=== PATIENT | female | born 1935 | race Caucasian/White ===

== ENCOUNTER 2018-06-07 11:39 | Observation (INO) | payer MEDICARE, OTHER ==
--- NOTE | 2018-06-07 12:30 | EDM.PDOC ---
ED HPI GENERAL MEDICAL PROBLEM - General Chief Complaint: Genitourinary Problem Stated Complaint: BLADDER INFECTION Time Seen by Provider: 06/07/18 12:30 Source of Information: Reports: Patient, RN History Limitations: Reports: No Limitations - History of Present Illness INITIAL COMMENTS - FREE TEXT/NARRATIVE: Very pleasant 82-year-old female presents to the emergency room today brought in by her with complaints of lower abdominal pain, dysuria, urgency, frequency with urination. She recently finished a three-day course of amoxicillin for UTI. She finished her amoxicillin on the . She denies any fever or chills, positive nausea, no vomiting or diarrhea. She denies any bloating. She does notice some flank pain. Her symptoms became increasingly worse yesterday. She reports that she still able to drink fluids adequately. She is a patient at the [facility]. Upon arrival her blood pressure was elevated 190/105. This was repeated and continued to be elevated. Patient denies any headaches, or chest pain. She denies any shortness of breath or difficulty breathing. Onset: Gradual Onset Date: 06/06/18 Duration: Day(s):, Getting Worse Location: Reports: Abdomen, Pelvis Quality: Reports: Burning Severity: Severe Improves with: Reports: None Worsens with: Reports: None Associated Symptoms: Reports: Loss of Appetite. Denies: Chest Pain, Fever/ Chills, Headaches, Nausea/Vomiting, Shortness of Breath - Related Data Allergies Allergy/AdvReac Type Severity Reaction Status Date / Time nitrofurantoin Allergy Nausea and Verified 06/07/18 11:58 macrocrystalline Vomiting [From Macrodantin] Sulfa (Sulfonamide Allergy Hives Verified 06/07/18 11:58 Antibiotics) tolmetin sodium Allergy Edema Verified 06/07/18 11:58 [From Tolectin] Home Meds: Home Meds Aspirin [Low Dose Aspirin EC] 81 mg PO DAILY 09/02/15 [History] Beta-Carotene(A) w/C & E/Min [Prosight] 1 tab PO DAILY 09/02/15 [History] Fluticasone Propionate [Flovent HFA 220 MCG] 2 gm INH BID 09/02/15 [History] Loratadine [Claritin] 10 mg PO DAILY PRN 09/02/15 [History] Losartan [Cozaar] 100 mg PO DAILY 09/02/15 [History] Omeprazole 20 mg PO BIDAC 09/02/15 [History] Acetaminophen/Caffeine [Excedrin Tension Headache Cplt] 1 tab PO ASDIRECTED PRN 06/07/18 [History] cloNIDine [Catapres] 0.1 mg PO DAILY 06/07/18 [History] Past Medical History HEENT History: Reports: Glaucoma, Impaired Vision, Macular Degeneration Cardiovascular History: Reports: Hypertension Gastrointestinal History: Reports: GERD, Hemorrhoids 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 and basal cell removal right hand - Infectious Disease History Infectious Disease History: Reports: Chicken Pox, Measles, Mumps - Past Surgical History HEENT Surgical History: Reports: Eye Surgery, Other (See Below) GI Surgical History: Reports: Appendectomy, Colonoscopy, EGD Female Surgical History: Reports: Tubal Ligation, Other (See Below) Musculoskeletal Surgical History: Reports: None Dermatological Surgical History: Reports: Skin Biopsy Social & Family History - Tobacco Use Smoking Status *Q: Never Smoker - Caffeine Use Caffeine Use: Reports: Coffee - Recreational Drug Use Recreational Drug Use: No ED ROS GENERAL - Review of Systems Review Of Systems: See Below Constitutional: Reports: Decreased Appetite. Denies: Fever, Chills HEENT: Reports: No Symptoms Respiratory: Reports: No Symptoms Cardiovascular: Reports: No Symptoms Endocrine: Reports: No Symptoms GI/Abdominal: Reports: Abdominal Pain, Nausea. Denies: Bloody Stool, Constipation, Diarrhea, Stool Incontinence, Vomiting : Reports: Dysuria, Flank Pain, Frequency, Urgency. Denies: Incontinence Musculoskeletal: Reports: No Symptoms Skin: Denies: Rash Neurological: Reports: No Symptoms Psychiatric: Reports: No Symptoms Hematologic/Lymphatic: Reports: No Symptoms Immunologic: Reports: No Symptoms ED EXAM, RENAL/ - Physical Exam Exam: See Below Exam Limited By: No Limitations General Appearance: Alert, No Apparent Distress, Thin Eye Exam: Bilateral Eye: EOMI, PERRL (Physical equal) Ears: Hearing Grossly Normal Nose: Normal Inspection Throat/Mouth: Normal Oropharynx, Normal Voice, No Airway Compromise Head: Atraumatic, Normocephalic Neck: Normal Inspection, Supple, Non-Tender, Full Range of Motion. No: Lymphadenopathy (L), Lymphadenopathy (R) Respiratory/Chest: No Respiratory Distress, Lungs Clear Cardiovascular: Normal Peripheral Pulses, Regular Rate, Rhythm, No Murmur, Tachycardia GI/Abdominal: No Distention, No Mass, Tender (Bilateral lower quadrants to palpation). No: Distended, Guarding, Rigid Back Exam: CVA Tenderness (L), CVA Tenderness (R) Extremities: Normal Inspection, No Pedal Edema Neurological: Alert, Oriented, No Motor/Sensory Deficits Psychiatric: Normal Affect, Normal Mood Skin Exam: Warm, Dry, Intact, Normal Color, No Rash Lymphatic: No Adenopathy Course - Vital Signs Last Recorded V/S: Last Vital Signs Temp 98.2 F 06/07/18 11:49 Pulse 72 06/07/18 14:57 Resp 18 06/07/18 14:57 BP 165/98 H 06/07/18 14:57 Pulse Ox 95 06/07/18 14:57 - Orders/Labs/Meds Labs: Laboratory Tests 06/07/18 06/07/18 06/07/18 Range/Units 11:47 12:44 12:44 WBC 6.86 (5.00-10.00) 10^3/uL RBC 4.38 (3.80-5.50) 10^6/uL Hgb 14.6 (12.0-16.0) g/dL Hct 40.9 (37.0-47.0) % MCV 93.4 H (82.0-92.0) fL MCH 33.3 H (27.0-31.0) pg MCHC 35.7 (32.0-36.0) g/dL RDW 12.6 (11.5-14.5) % Plt Count 149 L (150-400) 10^3/uL MPV 9.2 (7.4-10.4) fL Immature Gran % (Auto) 0.3 (0.0-5.0) % Neut % (Auto) 84.8 H (50.0-70.0) % Lymph % (Auto) 9.6 L (20.0-40.0) % Dane % (Auto) 5.2 (2.0-8.0) % Eos % (Auto) 0.0 L (1.0-3.0) % Baso % (Auto) 0.1 (0.0-1.0) % Immature Gran # (Auto) 0.02 (0.00-0.50) 10^3/uL Neut # (Auto) 5.81 (2.50-7.00) 10^3/uL Lymph # (Auto) 0.66 L (1.00-4.00) 10^3/uL Dane # (Auto) 0.36 (0.10-0.80) 10^3/uL Eos # (Auto) 0.00 L (0.10-0.30) 10^3/uL Baso # (Auto) 0.01 (0.00-0.10) 10^3/uL Sodium 133 L (136-145) mmol/L Potassium 4.5 (3.3-5.3) mmol/L Chloride 95 L (98-115) mmol/L Carbon Dioxide 22.3 (21.0-32.0) mmol/L Anion Gap 20.2 H (5-15) mmol/L BUN 25 (6-25) mg/dL Creatinine 1.31 H (0.51-1.17) mg/dL Est Cr Clr Drug Dosing 24.19 mL/min Estimated GFR (MDRD) 39 mL/min Glucose 110 H (75 - 99) mg/dL Calcium 9.7 (8.7-10.3) mg/dL Total Bilirubin 0.5 (0.2-1.0) mg/dL AST 39 H (15-37) U/L ALT 32 (12-78) U/L Alkaline Phosphatase 82 (46-116) IU/L Total Protein 7.5 (6.4-8.2) g/dL Albumin 4.58 (3.00-4.80) g/dL Specimen Type Urincc Urine Color Lamb H (YELLOW) Urine Appearance Clear (CLEAR) Urine pH 5.0 (5.0-9.0) Ur Specific Imperial 1.020 (1.005-1.030) Urine Protein 100 H (NEGATIVE) mg/dL Urine Glucose (UA) 100 H (NEGATIVE) mg/dL Urine Ketones Trace H (NEGATIVE) mg/dL Urine Occult Blood Negative (NEGATIVE) Urine Nitrite Positive H (NEGATIVE) Urine Bilirubin Negative (NEGATIVE) Urine Urobilinogen 1.0 (0.2-1.0) E.U./dL Ur Leukocyte Esterase Negative (NEGATIVE) Urine RBC 0-5 (0-5) /HPF Urine WBC 0-5 (0-5) /HPF Ur Epithelial Cells Moderate H /LPF Urine Bacteria Not seen (NONE TO FEW) /HPF Urine Mucus Few H (NEGATIVE) /LPF Meds: Medications Discontinued Medications Generic Name Dose Route Start Last Admin Trade Name Freq PRN Reason Stop Dose Admin Diatrizoate Meglum/Diatrizoate Sod 15 ml 06/07/18 14:03 Gastrografin 37% PO 06/07/18 14:04 ONETIME ONE Hydromorphone HCl 1 mg 06/07/18 12:44 06/07/18 12:56 Dilaudid IVPUSH 06/07/18 12:45 1 mg ONETIME ONE Administration Sodium Chloride 1,000 mls @ 1,000 mls/hr 06/07/18 12:43 06/07/18 12:53 Normal Saline IV 06/07/18 13:42 1,000 mls/hr .BOLUS ONE Administration Iopamidol 75 ml 06/07/18 14:04 Isovue-370 (76%) IVPUSH 06/07/18 14:05 ONETIME ONE Labetalol HCl 20 mg 06/07/18 13:47 06/07/18 13:52 Normodyne IVPUSH 06/07/18 13:48 20 mg ONETIME ONE Administration Protocol Ondansetron HCl 8 mg 06/07/18 13:05 06/07/18 13:09 Zofran IVPUSH 06/07/18 13:06 8 mg ONETIME ONE Administration - Re-Assessments/Exams Free Text/Narrative Re-Assessment/Exam: 06/07/18 13:53 Patient was given 1 mg of Dilaudid IV and 1 L normal saline is running. She experienced some nausea soon after given the Dilaudid and Zofran 8 mg was given IV. She reports her pain has improved. Her blood pressures were retaken remain elevated 195/110. Patient was given 20 mg of IV labetalol. Free Text/Narrative Re-Assessment/Exam: 06/07/18 15:37 Patient still felt dizzy and lightheaded with getting up and going to the bathroom. She was able to void without any difficulty. She denies nausea, vomiting currently. Her headache has resolved. Wasable to drop her systolic and diastolic pressures a with 20mg labetalol IV. Blood pressure initially was 157/ 98 and is maintaining at about 165/98 currently, improved from 198/105. Her CT scan was completed with of the abdominal and pelvis with no acute findings. Departure - Departure Time of Disposition: 15:40 Disposition: Refer to Observation Condition: Good Clinical Impression: Hypertensive urgency, Diverticulosis large intestine w/o perforation or abscess w/o bleeding, Dizziness on standing, History of recurrent urinary tract infection Nausea and vomiting Qualifiers: Vomiting type: unspecified Vomiting Intractability: non-intractable Qualified Code(s): R11.2 - Nausea with vomiting, unspecified Headache Qualifiers: Headache type: unspecified Headache chronicity pattern: acute headache Intractability: not intractable Qualified Code(s): R51 - Headache - Discharge Information Referrals: Yoanna Jang, [facility]OOK OPERATOR [Primary Care Provider] - Forms: ED Department Discharge - Assessment/Plan Assessment:: 1. Hypertensive emergency with headache and elevated BUN/creatinine 2. Lower abdominal bilateral quadrant pain with diverticulosis without evidence of acute diverticulitis on CT findings 3. Recent history of a urinary tract infection, UA negative 4. Nausea and vomiting, resolved 5. Dehydration, IV normal saline 1 L given Plan: 1. We'll place the patient and observation 2. Continue to run IV fluids for rehydration 3. We'll closely monitor her her blood pressures to look for any rebound hypertension. 4. I've discussed this with the PA provider from [facility] quality control analyst and will plan on following patient in the hospital.
[2018-06-07] MEDS ORDERED: Sodium Chloride 0.9% 1,000 ML IV ONE (12:43)
[2018-06-07] MEDS ORDERED: HYDROmorphone 1 MG/ML Syringe IVPUSH ONE (12:44)
[2018-06-07] MEDS ORDERED: Ondansetron 4 MG/2 ML SDV IVPUSH ONE (13:05)
[2018-06-07 13:16] LABS: ANION GAP 20.2 mmol/L (5-15)
[2018-06-07] MEDS ORDERED: Labetalol 100 MG/20 ML MDV IVPUSH ONE (13:47)
[2018-06-07] MEDS ORDERED: Diatrizoate Meglumine/Diatrizoate Sodium 37% 120 ML Bottle PO ONE (14:03)
[2018-06-07] MEDS ORDERED: Iopamidol 755 Mg/ML 75 ML Bottle IVPUSH ONE (14:04)
--- NOTE | 2018-06-07 15:21 | CT ---
[id number] CT/CT Abdomen Pelvis W IV EXAM: ABDOMEN AND PELVIS CT WITH CONTRAST INDICATION: Abdominal pain. COMPARISON: None. DISCUSSION: Small hiatus hernia. Reflux of contrast is seen into the distal esophagus. Cardiomegaly. Dense coronary arterial calcifications. Ectatic ascending aorta. Fatty infiltration of the liver. Extensive diverticulosis of the colon without CT evidence of acute diverticulitis. The appendix is not seen and per patient report has been removed. The pancreas, spleen, adrenal glands, gallbladder, kidneys, and small bowel are normal in appearance. No adenopathy, free air free fluid. The pelvic structures are unremarkable. Grade 1 L4-L5 and L5-S1 spondylolisthesis. Degenerative changes in the spine and hips. IMPRESSION: 1. No acute findings. Vinay Aleman MD 06/07/18 0304 Thank you for allowing us to participate in the care of your patient.
[2018-06-07] MEDS ORDERED: Promethazine 25 MG/ML SDV IM PRN (15:53)
[2018-06-07] MEDS ORDERED: Acetaminophen 325 MG Tab PO PRN (15:55)
[2018-06-07] MEDS ORDERED: [UNRECOGNIZED DRUG - OTHER] PO PRN (17:14)
[2018-06-07] MEDS ORDERED: CAFFEINE PO PRN (17:14)
[2018-06-07] MEDS ORDERED: Loratadine 10 MG Tab PO PRN (17:14)
[2018-06-07] MEDS ORDERED: ACETAMINOPHEN PO PRN (17:14)
[2018-06-07] MEDS ORDERED: Labetalol 100 MG/20 ML MDV IVPUSH PRN (17:31)
[2018-06-07] MEDS: Omeprazole 20 MG Cap.CR PO SCH (17:54)
[2018-06-07] MEDS: Dextrose 5%-0.45% NaCl 1,000 ML IV SCH (18:08)
--- NOTE | 2018-06-07 18:34 | HP ---
HISTORY OF PRESENT ILLNESS: This is a usually pretty healthy 82-year-old female patient, who was at home having some lower abdominal pain across her lower abdomen. She was seen in clinic last week for a urinary tract infection. She was seen in the clinic in [place] and was placed on an antibiotic at that time for a possibly UTI. She was at home today and she was having this pain across her abdomen. She did not know what the pain was from. She did say she had some burning with urination. Otherwise, no other symptoms. No fever or chills. No diarrhea. No bloating or gas problems. She came to the emergency room for further evaluation and treatment. PAST MEDICAL HISTORY: The patient does have a past medical history of diverticulosis, hypertension, GERD, allergies and asthma. MEDICATIONS: Medications that she takes at home: She takes Catapres 0.1 mg daily for hypertension, she takes omeprazole 20 mg twice a day for GERD, she takes losartan 100 mg daily for hypertension, she takes Claritin as needed for allergies, she takes Flovent inhaler twice daily for asthma, and she does take a baby aspirin 81 mg daily. ALLERGIES: She does have allergies to Macrobid, sulfa, and Tolectin. SOCIAL/PERSONAL HISTORY: The patient does live with her in [place]. She is retired. She denies any alcohol or tobacco use. REVIEW OF SYSTEMS: CONSTITUTIONAL: No weight loss. No fever. No chills. No night sweats. Appetite is good. No fatigue. EYES: No recent visual changes. ENT: No sinus congestion or hoarseness. CARDIOVASCULAR: No chest pain or palpitations. RESPIRATORY: No cough. No shortness of breath. GI: The patient does complain of nausea and abdominal pain, mostly across her lower part of her abdomen. : She does complain of some dysuria with urination. MUSCULOSKELETAL: No new bone pain or joint swelling. INTEGUMENTARY: No rash or pruritus. NEUROLOGIC/PSYCHIATRIC: No recent headache or focal weakness. No depressive symptoms. ENDOCRINE: No heat or cold intolerances or polydipsia. HEMATOLOGIC/LYMPHATIC: No excessive bruising or lymph node swelling. ALLERGIC/IMMUNOLOGIC: No hives or recurrent infections. PHYSICAL EXAMINATION: GENERAL: This is a white elderly female, in no acute distress. VITAL SIGNS: Her weight is 109 pounds; pulse is 76, regular; blood pressure is 116/68; respiratory rate is 18; oxygen saturation on room air is 97%. HEENT: Normocephalic. EOMs are intact. Pupils are equal, round, and reactive to light and accommodation. No pharyngeal erythema noted. Nose is clear. NECK: Supple. No JVD. Trachea is midline. RESPIRATORY: Lung sounds are clear in upper lobes, slightly diminished at bilateral bases, otherwise clear. CARDIAC: Regular rate and rhythm. No murmurs identified. ABDOMEN: Soft, nontender, nondistended. Bowel sounds active x4. EXTREMITIES: Full range of motion. No joint effusions noted. NEUROLOGIC: Grossly intact. DIAGNOSTIC: The patient did have a CT of the abdomen performed in the ER. The patient does have history of having her appendix removed. She does have fatty infiltration to her liver. She does have extensive diverticulosis of the colon without CT evidence of acute diverticulitis. She has some spondylolisthesis of her L4-L5, L5-S1. Otherwise, according to Dr. Aleman, Radiology, there are no acute findings. LABORATORY DATA: The patient's lab work that was obtained in the emergency room: The patient's CBC showed white count within normal range at 6.86, hemoglobin was 14.6, platelet count was 149. The patient's chemistry panel showed a sodium slightly low at 133, potassium within normal range at 4.5, chloride slightly low at 95, the patient's BUN was 25, creatinine was elevated at 1.31, GFR was down to 39, otherwise unremarkable. The patient's urinalysis showed dark orange in color, 100 protein, glucose, trace of ketones, positive for nitrites, moderate epithelial cells, no bacteria seen, few mucus. IMPRESSION/PLAN: 1. Acute abdominal pain, most likely exacerbation of diverticulosis. Plan: The patient's CT scan as described above, no acute findings were seen by Radiology. She was nauseated in the emergency room. She was given Zofran IV in the emergency room. She can have Phenergan 25 mg as needed for nausea. She was also given 1 mg of Dilaudid in the ER for abdominal pain. She denies any abdominal pain at this time. We are going to continue with her omeprazole 20 mg twice a day. She can have some Tylenol for pain at this time. Regular diet. 2. Dehydration. Plan: The patient's creatinine was elevated at 1.31, GFR is down to 39, this is below the patient's baseline. She was given a 1 L bolus in the ER. The patient's urinalysis shows dark orange urine with lots of protein and mucus. We are going to hydrate the patient with IV fluids of D5 one-half normal saline at 75 mL an hour. We will recheck CMP in the morning. 3. Hypertension. Plan: The patient did have an elevated blood pressure in the ER. She was given labetalol 20 mg IV in the ER. We will continue with losartan 100 mg daily along with her clonidine 0.1 mg daily, also her aspirin 81 mg daily. Labetalol 20 mg IV PRN. 4. History of asthma. We will continue with the patient's Flovent inhaler that she does use twice a day at home. OVERALL PLAN: The patient seems to be having exacerbation of her diverticulosis, most likely from dehydration. We will give the patient some IV fluids and most likely, we will discharge the patient in the morning. /[id number]/MODL MTDD
[2018-06-07] MEDS: Fluticasone Propionate 220 MCG/Puff 12 GM Inhaler INH SCH (20:36)
[2018-06-07] MEDS ORDERED: Sodium Chloride 0.9% 100 ML IV SCH (22:00)
[2018-06-08] MEDS: Omeprazole 20 MG Cap.CR PO SCH (07:26)
[2018-06-08] MEDS: Dextrose 5%-0.45% NaCl 1,000 ML IV SCH (07:34)
[2018-06-08] MEDS: Fluticasone Propionate 220 MCG/Puff 12 GM Inhaler INH SCH ×2 (07:36→08:09)
[2018-06-08 08:09] VITALS: BP 166/99
[2018-06-08] MEDS ORDERED: cloNIDine 0.1 MG Tab PO SCH (09:00)
[2018-06-08] MEDS ORDERED: Losartan 50 MG Tab PO SCH (09:00)
[2018-06-08] MEDS ORDERED: Lutein/Minerals/Vitamins A, C & E Tab PO SCH (09:00)
[2018-06-08] MEDS ORDERED: Aspirin 81 MG Tab.EC PO SCH (09:00)
--- NOTE | 2018-06-08 14:09 | DISCH ---
ADMITTING DIAGNOSIS: Lower abdominal pain and dehydration. DISCHARGE DIAGNOSIS: Lower abdominal pain, resolved and dehydration, resolved. BRIEF HISTORY AND ESSENTIAL PHYSICAL FINDINGS: This is an 82-year-old female patient who was seen in clinic last week with concerns about urinary tract infection. The patient was placed on antibiotic at that time. Yesterday, she was having lower abdominal pain. She complained of burning with urination. The abdominal pain was all the way across her abdomen. She was concerned, so she came to the emergency room. In emergency room, she had lab work, urinalysis, and CT of the abdomen and pelvis, which were all unremarkable except for her creatinine was elevated and her urine was very concentrated. She was admitted to the hospital for observation of her abdominal pain and for dehydration. SIGNIFICANT LABS XRAYS AND CONSULTATION FINDINGS: The patient's CT of the abdomen and pelvis did show that the patient has a small hiatal hernia. She has fatty infiltration of her liver. She has extensive diverticulosis of the colon without CT evidence of acute diverticulitis. Her appendix has been surgically removed and she does have grade 1 spondylolisthesis to L4 and L5 and L5-S1. Otherwise, no acute findings. The patient's lab work that was obtained in the emergency room; CBC showed a white count within normal range at 6.86, hemoglobin 14.6, platelet count 149. Chemistry panel showed sodium slightly low at 133, chloride low at 95, BUN was 25, creatinine was 1.31. Otherwise, rest of her lab was unremarkable. Her urine did show dark orange in color, protein, glucose, trace of ketones, positive nitrites, moderate epithelial cells and some mucus. Repeat lab work on 06/08/2018, day of discharge, the patient's repeat CMP did show her sodium is still be low at 133, potassium 3.8, otherwise everything was unremarkable. The patient's repeat urinalysis on the morning of discharge was totally unremarkable. COURSE IN HOSPITAL WITH COMPLICATIONS IF ANY: The patient had no further abdominal pain. When she was seen in the emergency room, she still complained of some burning with urination at the opening, right where the urine comes out. She denied any bladder pain. She denies any nausea, fever, or chills. Her abdominal pain went away. She says it is a little sore, but otherwise, no problems. No diarrhea. CONDITION TREATMENT AND FINAL DISPOSITION ON DISCHARGE AND PROGNOSIS: Condition is stable. Final disposition will be home. IMPRESSION AND PLAN: 1. Acute lower abdominal pain, which is resolved, most likely just exacerbation of her diverticulosis. The patient's CT scan had no acute findings per Radiology. She was nauseated in the emergency room, but she was given Zofran. No further episodes of nausea since admission. I am going to send her home on her omeprazole 20 mg twice a day. I am going to send her home with Mycolog cream. I am going to have her apply to her meatus after urination until burning sensation resolves. She can follow up in the clinic next week with Yoanna Jang in the [facility]. 2. Dehydration. Plan: The patient's creatinine was elevated at admission at 1.31. Her GFR was down to 39. She was given a 1 L bolus in the ER. I ran D5 half normal saline at 75 mL an hour. Repeat lab work now today before discharge. Her GFR is up to 47 and her BUN is 14 and creatinine is 1.11. The patient's urinalysis this morning was totally unremarkable. 3. History of hypertension. Plan: The patient's blood pressure was elevated in the emergency room. She was given some labetalol IV. Her blood pressure has been well controlled throughout the hospital stay. We will continue with her antihypertensive medications she was taking at home, losartan 100 mg daily along with clonidine 0.1 mg daily. She also takes a baby aspirin 81 mg daily. 4. History of asthma. She can continue her Flovent inhaler at home twice a day as she was doing before. OVERALL PLAN: I am going to discharge the patient home. She is doing well. She is hydrated now. No abdominal pain. I am going to send her home with some Mycolog for skin irritation around her labia with urination, most likely from urine irritating the skin. She can use this Mycolog cream after each urination. She will follow up with Yoanna Jang next week in the clinic. /[id number]/MODL MTDD
== END 2018-06-08 11:33 | disposition home or self-care (01) ==
LOC: KA.ED 11:39 → KA.MS 15:55
PROVIDERS: ADMIT Physician Assistant; ATTEND Physician Assistant
DX: R10.30 Lower abdominal pain, unspecified (principal); E86.0 Dehydration; I10 Essential (primary) hypertension; J45.909 Unspecified asthma, uncomplicated; K57.30 Diverticulosis of large intestine without perforation or abscess without bleeding; Z79.899 Other long term (current) drug therapy; Z88.2 Allergy status to sulfonamides; Z88.1 Allergy status to other antibiotic agents
CPT/HCPCS: 36415; 74177; 80053; 81001; 85025; 99284; A9270-GY; J1170; J2405; J3490; J7030; J7042; Q9963

== ENCOUNTER 2018-06-25 22:40 | Emergency (ER) | payer MEDICARE, OTHER ==
[2018-06-25] MEDS ORDERED: Sodium Chloride 0.9% 10 ML Syringe FLUSH PRN (23:10)
[2018-06-25] MEDS ORDERED: Sodium Chloride 0.9% 1,000 ML IV ONE (23:10)
[2018-06-25 23:32] VITALS: BP 167/109
[2018-06-25] MEDS ORDERED: Phenazopyridine 100 MG Tab PO ONE (23:37)
--- NOTE | 2018-06-25 23:51 | EDM.PDOC ---
ED HPI GENERAL MEDICAL PROBLEM - General Chief Complaint: Genitourinary Problem Stated Complaint: bladder infection Time Seen by Provider: 06/25/18 22:59 Source of Information: Reports: Patient History Limitations: Reports: No Limitations - History of Present Illness INITIAL COMMENTS - FREE TEXT/NARRATIVE: Patient is 82-year-old female who presents to the emergency department this evening with a complaint of dysuria. Patient was admitted to the hospital on June 07 after being seen in the ER for same symptoms. Patient had a one- day hospital stay and was discharged. Patient states that she was seen at [place] [facility] on Friday and given antibiotics for UTI. Patient is unsure which antibiotics she is taking. Patient denies chest pain, shortness of breath, headache, vision changes, abdominal pain, nausea, vomiting, diarrhea, urinary incontinence, blood in urine or stool, or fever. Onset: Gradual Duration: Week(s): Quality: Reports: Burning Severity: Mild Improves with: Reports: None Worsens with: Reports: None Associated Symptoms: Reports: No Other Symptoms. Denies: Chest Pain, Fever/ Chills, Nausea/Vomiting, Shortness of Breath Bladder Pain Score (Numeric/FACES): 9 - Related Data Allergies Allergy/AdvReac Type Severity Reaction Status Date / Time nitrofurantoin Allergy Nausea and Verified 06/25/18 22:48 macrocrystalline Vomiting [From Macrodantin] Sulfa (Sulfonamide Allergy Hives Verified 06/25/18 22:48 Antibiotics) tolmetin sodium Allergy Edema Verified 06/25/18 22:48 [From Tolectin] Home Meds: Home Meds Aspirin [Low Dose Aspirin EC] 81 mg PO DAILY 09/02/15 [History] Beta-Carotene(A) w/C & E/Min [Prosight] 1 tab PO DAILY 09/02/15 [History] Fluticasone Propionate [Flovent HFA 220 MCG] 2 gm INH BID 09/02/15 [History] Loratadine [Claritin] 10 mg PO DAILY PRN 09/02/15 [History] Losartan [Cozaar] 100 mg PO DAILY 09/02/15 [History] Omeprazole 20 mg PO BIDAC 09/02/15 [History] Acetaminophen/Caffeine [Excedrin Tension Headache Cplt] 1 tab PO ASDIRECTED PRN 06/07/18 [History] cloNIDine [Catapres] 0.1 mg PO DAILY 06/07/18 [History] Nystatin/Triamcinolone Crm [Mycolog Crm] 60 gm TOP ASDIRECTED PRN 30 Days #1 tube 06/08/18 [Rx] Phenazopyridine HCl [Pyridium] 100 mg PO BID #4 tablet 06/25/18 [Rx] cephALEXin [Cephalexin] 1 tab PO BID 06/25/18 [History] Past Medical History HEENT History: Reports: Glaucoma, Impaired Vision, Macular Degeneration Cardiovascular History: Reports: Hypertension Gastrointestinal History: Reports: GERD, Hemorrhoids 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 and basal cell removal right hand - Infectious Disease History Infectious Disease History: Reports: Chicken Pox, Measles, Mumps - Past Surgical History Head Surgeries/Procedures: Reports: None HEENT Surgical History: Reports: Eye Surgery, Other (See Below) GI Surgical History: Reports: Appendectomy, Colonoscopy, EGD Female Surgical History: Reports: Tubal Ligation, Other (See Below) Musculoskeletal Surgical History: Reports: None Oncologic Surgical History: Reports: None Dermatological Surgical History: Reports: Skin Biopsy Social & Family History - Family History Family Medical History: Noncontributory HEENT: Reports: None Cardiac: Reports: None Respiratory: Reports: None GI: Reports: None : Reports: UTI, Recurrent OBGYN: Reports: None Musculoskeletal: Reports: None Neurological: Reports: None Psychiatric: Reports: None Endocrine/Metabolic: Reports: None Hematologic: Reports: None Immunologic: Reports: None Dermatologic: Reports: None Oncologic: Reports: None - Tobacco Use Smoking Status *Q: Never Smoker - Caffeine Use Caffeine Use: Reports: Coffee - Recreational Drug Use Recreational Drug Use: No ED ROS GENERAL - Review of Systems Review Of Systems: ROS reveals no pertinent complaints other than HPI. Constitutional: Reports: No Symptoms HEENT: Reports: No Symptoms Respiratory: Reports: No Symptoms Cardiovascular: Reports: No Symptoms Endocrine: Reports: No Symptoms GI/Abdominal: Reports: No Symptoms : Reports: Dysuria. Denies: Flank Pain Musculoskeletal: Reports: No Symptoms Skin: Reports: No Symptoms Neurological: Reports: No Symptoms Psychiatric: Reports: No Symptoms Hematologic/Lymphatic: Reports: No Symptoms Immunologic: Reports: No Symptoms ED EXAM, RENAL/ - Physical Exam Exam: See Below Exam Limited By: No Limitations General Appearance: Alert, WD/WN, No Apparent Distress Eye Exam: Bilateral Eye: Normal Inspection Nose: Normal Inspection, No Blood Throat/Mouth: Normal Inspection, Normal Oropharynx, No Airway Compromise Head: Atraumatic, Normocephalic Neck: Normal Inspection, Supple, Non-Tender Respiratory/Chest: No Respiratory Distress, Lungs Clear, Normal Breath Sounds, No Accessory Muscle Use, Chest Non-Tender Cardiovascular: Regular Rate, Rhythm, No Murmur GI/Abdominal: Normal Bowel Sounds, Soft, Non-Tender, No Organomegaly, No Distention, No Abnormal Bruit, No Mass Back Exam: Normal Inspection. No: CVA Tenderness (L), CVA Tenderness (R) Extremities: Normal Inspection, No Pedal Edema Neurological: Alert, Oriented, CN II-XII Intact, Normal Cognition, No Motor/ Sensory Deficits Psychiatric: Normal Affect, Normal Mood Skin Exam: Warm, Dry, Intact, Normal Color, No Rash Course - Vital Signs Last Recorded V/S: Last Vital Signs Temp 97.2 F 06/25/18 22:53 Pulse 96 06/25/18 23:31 Resp 20 06/25/18 23:31 BP 167/109 H 06/25/18 23:31 Pulse Ox 94 L 06/25/18 23:31 - Orders/Labs/Meds Orders: Active Orders 24 hr Category Date Time Status Peripheral IV Care [RC] . DIRECTED Care 06/25/18 23:10 Ordered Sodium Chloride 0.9% @ 999 MLS/HR (1000ml) Med 06/25/18 23:10 Ordered Sodium Chloride 0.9% [Normal Saline] 1,000 ml IV .BOLUS Sodium Chloride 0.9% [Saline Flush] Med 06/25/18 23:10 Ordered 10 ml FLUSH Q8HR PRN Peripheral IV Insertion Adult [OM.PC] Routine Oth 06/25/18 23:10 Ordered Medication Orders Sodium Chloride (Normal Saline) 1,000 mls @ 999 mls/hr IV .BOLUS ONE Stop: 06/26/18 00:10 Last Admin: 06/25/18 23:31 Dose: 999 mls/hr Sodium Chloride (Saline Flush) 10 ml FLUSH Q8HR PRN PRN Reason: keep vein open Labs: Laboratory Tests 06/25/18 06/25/18 06/25/18 Range/Units 22:45 23:20 23:20 WBC 8.91 (5.00-10.00) 10^3/uL RBC 4.27 (3.80-5.50) 10^6/uL Hgb 14.1 (12.0-16.0) g/dL Hct 40.2 (37.0-47.0) % MCV 94.1 H (82.0-92.0) fL MCH 33.0 H (27.0-31.0) pg MCHC 35.1 (32.0-36.0) g/dL RDW 13.3 (11.5-14.5) % Plt Count 190 (150-400) 10^3/uL MPV 8.6 (7.4-10.4) fL Immature Gran % (Auto) 0.2 (0.0-5.0) % Neut % (Auto) 76.0 H (50.0-70.0) % Lymph % (Auto) 14.3 L (20.0-40.0) % Mccracken % (Auto) 9.2 H (2.0-8.0) % Eos % (Auto) 0.1 L (1.0-3.0) % Baso % (Auto) 0.2 (0.0-1.0) % Immature Gran # (Auto) 0.02 (0.00-0.50) 10^3/uL Neut # (Auto) 6.77 (2.50-7.00) 10^3/uL Lymph # (Auto) 1.27 (1.00-4.00) 10^3/uL M[place]racken # (Auto) 0.82 H (0.10-0.80) 10^3/uL Eos # (Auto) 0.01 L (0.10-0.30) 10^3/uL Baso # (Auto) 0.02 (0.00-0.10) 10^3/uL Sodium 133 L (136-145) mmol/L Potassium 4.0 (3.3-5.3) mmol/L Chloride 94 L (98-115) mmol/L Carbon Dioxide 20.8 L (21.0-32.0) mmol/L Anion Gap 22.2 H (5-15) mmol/L BUN 20 (6-25) mg/dL Creatinine 1.56 H (0.51-1.17) mg/dL Est Cr Clr Drug Dosing 20.32 mL/min Estimated GFR (MDRD) 32 mL/min Glucose 98 (75 - 99) mg/dL Calcium 10.2 D (8.7-10.3) mg/dL Total Bilirubin 0.5 (0.2-1.0) mg/dL AST 30 (15-37) U/L ALT 28 (12-78) U/L Alkaline Phosphatase 82 (46-116) IU/L Total Protein 7.5 (6.4-8.2) g/dL Albumin 4.31 (3.00-4.80) g/dL Specimen Type Urinvoid Urine Color Yellow (YELLOW) Urine Appearance Clear (CLEAR) Urine pH 5.5 (5.0-9.0) Ur Specific Gregory 1.015 (1.005-1.030) Urine Protein Negative (NEGATIVE) mg/dL Urine Glucose (UA) Negative (NEGATIVE) mg/dL Urine Ketones Trace H (NEGATIVE) mg/dL Urine Occult Blood Negative (NEGATIVE) Urine Nitrite Negative (NEGATIVE) Urine Bilirubin Negative (NEGATIVE) Urine Urobilinogen 0.2 (0.2-1.0) E.U./dL Ur Leukocyte Esterase Negative (NEGATIVE) Urine RBC 0-5 (0-5) /HPF Urine WBC 0-5 (0-5) /HPF Ur Epithelial Cells Moderate H /LPF Urine Bacteria Few (NONE TO FEW) /HPF Hyaline Casts Occasional H (NEGATIVE) /LPF Meds: Medications Generic Name Dose Route Start Last Admin Trade Name Freq PRN Reason Stop Dose Admin Sodium Chloride 1,000 mls @ 999 mls/hr 06/25/18 23:10 06/25/18 23:31 Normal Saline IV 06/26/18 00:10 999 mls/hr .BOLUS ONE Administration Sodium Chloride 10 ml 06/25/18 23:10 Saline Flush FLUSH Q8HR PRN keep vein open Discontinued Medications Generic Name Dose Route Start Last Admin Trade Name Freq PRN Reason Stop Dose Admin Phenazopyridine HCl 100 mg 06/25/18 23:37 06/25/18 23:51 Pyridium PO 06/25/18 23:38 100 mg ONETIME ONE Administration - Re-Assessments/Exams Free Text/Narrative Re-Assessment/Exam: 06/25/18 23:50 Patient was initially hypertensive at 205/117. She was asymptomatic. Patient had similar vital signs upon presentation to the ER June 07 also. Upon repeat vital signs blood pressure decreased to 160s over 100 without medication being given. Patient remains asymptomatic. Free Text/Narrative Re-Assessment/Exam: 06/25/18 23:57 Patient afebrile, nontoxic appearing, vital signs stable. Patient given 100 mg of Pyridium. Prescription for Pyridium will also be sent to the [facility]. Patient will follow-up with PCP tomorrow Departure - Departure Time of Disposition: 23:57 Disposition: Home, Self-Care 01 Condition: Good Clinical Impression: Dysuria, Hypertension - Discharge Information Instructions: Hypertension, [id number], Dysuria Forms: ED Department Discharge Additional Instructions: Follow-up at [facility] tomorrow. Return to emergency department sooner if symptoms continue or worsen. - My Orders Last 24 Hours: My Active Orders 06/25/18 23:10 Peripheral IV Care [RC] . DIRECTED Sodium Chloride 0.9% @ 999 MLS/HR (1000ml) Sodium Chloride 0.9% [Normal Saline] 1,000 ml IV .BOLUS Sodium Chloride 0.9% [Saline Flush] 10 ml FLUSH Q8HR PRN Peripheral IV Insertion Adult [OM.PC] Routine - Assessment/Plan Last 24 Hours: My Active Orders 06/25/18 23:10 Peripheral IV Care [RC] . DIRECTED Sodium Chloride 0.9% @ 999 MLS/HR (1000ml) Sodium Chloride 0.9% [Normal Saline] 1,000 ml IV .BOLUS Sodium Chloride 0.9% [Saline Flush] 10 ml FLUSH Q8HR PRN Peripheral IV Insertion Adult [OM.PC] Routine Assessment:: Dysuria Plan: Follow-up with PCP tomorrow
[2018-06-25 23:52] LABS: ANION GAP 22.2 mmol/L (5-15)
== END 2018-06-26 00:30 | disposition home or self-care (01) ==
LOC: KA.ED 22:40
DX: R30.0 Dysuria (principal); I10 Essential (primary) hypertension; K21.9 Gastro-esophageal reflux disease without esophagitis; Z88.8 Allergy status to other drugs, medicaments and biological substances; Z88.2 Allergy status to sulfonamides; Z79.82 Long term (current) use of aspirin; Z79.899 Other long term (current) drug therapy
CPT/HCPCS: 36415; 80053; 81001; 85025; 96360; 99283-25; 99284; A9270-GY; J7030

== ENCOUNTER 2018-10-17 08:23 | Emergency (ER) | payer MEDICARE, OTHER ==
[2018-10-17 08:54] VITALS: BP 158/91
[2018-10-17] MEDS ORDERED: cefTRIAXone 1 GM Vial IM ONE (09:27)
--- NOTE | 2018-10-17 09:33 | EDM.PDOC ---
ED HPI GENERAL MEDICAL PROBLEM - General Chief Complaint: Genitourinary Problem Stated Complaint: ? BLADDER INFECTION Time Seen by Provider: 10/17/18 09:25 Source of Information: Reports: Patient History Limitations: Reports: No Limitations - History of Present Illness INITIAL COMMENTS - FREE TEXT/NARRATIVE: Patient is an 83-year-old female who presents to the emergency Department this morning with a complaint of dysuria. Patient states that this burning sensation with urination began yesterday and worsened today. Patient states that she does have periodic UTIs in this has similar symptoms. Patient denies fever, abdominal pain, nausea, vomiting, diarrhea, vaginal bleeding, labial irritation or erythema, or any trauma. Onset: Gradual Onset Date: 10/16/18 Duration: Day(s): Location: Reports: Abdomen Quality: Reports: Burning Severity: Mild Improves with: Reports: None Worsens with: Reports: None Associated Symptoms: Reports: No Other Symptoms. Denies: Chest Pain, Fever/ Chills, Nausea/Vomiting, Shortness of Breath - Related Data Allergies Allergy/AdvReac Type Severity Reaction Status Date / Time amlodipine Allergy Edema Verified 10/17/18 08:55 metoprolol Allergy Edema Verified 10/17/18 08:55 nitrofurantoin Allergy Nausea and Verified 10/17/18 08:55 macrocrystalline Vomiting [From Macrodantin] Sulfa (Sulfonamide Allergy Hives Verified 10/17/18 08:55 Antibiotics) tolmetin sodium Allergy Edema Verified 10/17/18 08:55 [From Tolectin] Home Meds: Home Meds Losartan [Cozaar] 100 mg PO DAILY 09/02/15 [History] Omeprazole 20 mg PO BIDAC 09/02/15 [History] cloNIDine [Catapres] 0.2 mg PO BID 06/07/18 [History] Atenolol [Tenormin] 25 mg PO DAILY 10/14/18 [History] Multivitamin [Multi-Vitamin Daily] 1 each PO DAILY 10/14/18 [History] Propylene Glycol/PEG 400/Pf [Systane Ultra 0.4-0.3% Eye Drp] 1 each OP Q4HR PRN 10/14/18 [History] Acetaminophen/Caffeine [Excedrin Tension Headache Cplt] 1 each PO DAILY PRN [History] Cephalexin [Keflex] 500 mg PO TID #15 capsule 10/17/18 [Rx] Past Medical History HEENT History: Reports: Cataract, Glaucoma, Impaired Vision, Macular Degeneration Cardiovascular History: Reports: Hypertension Gastrointestinal History: Reports: GERD, Hemorrhoids Genitourinary History: Reports: UTI, Recurrent 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 and basal cell removal right hand - Infectious Disease History Infectious Disease History: Reports: Chicken Pox, Measles, Mumps, Pertussis ( Whooping Cough), Rubella - Past Surgical History Head Surgeries/Procedures: Reports: None HEENT Surgical History: Reports: Cataract Surgery, Eye Surgery Cardiovascular Surgical History: Reports: None GI Surgical History: Reports: Appendectomy, Colonoscopy, EGD Female Surgical History: Reports: Tubal Ligation Neurological Surgical History: Reports: None Musculoskeletal Surgical History: Reports: None Oncologic Surgical History: Reports: None Dermatological Surgical History: Reports: Skin Biopsy Social & Family History - Family History Family Medical History: Noncontributory HEENT: Reports: None Cardiac: Reports: None Respiratory: Reports: None GI: Reports: None : Reports: UTI, Recurrent OBGYN: Reports: None Musculoskeletal: Reports: None Neurological: Reports: None Psychiatric: Reports: None Endocrine/Metabolic: Reports: None Hematologic: Reports: None Immunologic: Reports: None Dermatologic: Reports: None Oncologic: Reports: None - Tobacco Use Smoking Status *Q: Never Smoker - Caffeine Use Caffeine Use: Reports: Coffee Other Caffeine Use: COFFEE WITH COMPANY - Recreational Drug Use Recreational Drug Use: No ED ROS GENERAL - Review of Systems Review Of Systems: ROS reveals no pertinent complaints other than HPI. Constitutional: Reports: No Symptoms HEENT: Reports: No Symptoms Respiratory: Reports: No Symptoms Cardiovascular: Reports: No Symptoms Endocrine: Reports: No Symptoms GI/Abdominal: Reports: No Symptoms : Reports: Dysuria, Frequency. Denies: Discharge Musculoskeletal: Reports: No Symptoms Skin: Reports: No Symptoms Neurological: Reports: No Symptoms Psychiatric: Reports: No Symptoms Hematologic/Lymphatic: Reports: No Symptoms Immunologic: Reports: No Symptoms ED EXAM, RENAL/ - Physical Exam Exam: See Below Exam Limited By: No Limitations General Appearance: Alert, WD/WN, No Apparent Distress Throat/Mouth: Normal Inspection, Normal Oropharynx, No Airway Compromise Respiratory/Chest: No Respiratory Distress, Lungs Clear, Normal Breath Sounds, No Accessory Muscle Use, Chest Non-Tender Cardiovascular: Regular Rate, Rhythm, No Murmur GI/Abdominal: Normal Bowel Sounds, Soft, Non-Tender Back Exam: Normal Inspection. No: CVA Tenderness (L), CVA Tenderness (R) Extremities: Normal Inspection, No Pedal Edema Neurological: Alert, Oriented, Normal Cognition Psychiatric: Normal Affect, Normal Mood Skin Exam: Warm, Dry, Intact, Normal Color, No Rash Lymphatic: No Adenopathy Course - Vital Signs Last Recorded V/S: Last Vital Signs Temp 97.0 F 10/17/18 08:52 Pulse Resp 18 10/17/18 08:52 BP 158/91 H 10/17/18 08:52 Pulse Ox - Orders/Labs/Meds Orders: Active Orders 24 hr Category Date Time Status CULTURE URINE [RM] Stat Lab 10/17/18 09:25 Ordered Labs: Laboratory Tests 10/17/18 Range/Units 08:43 Specimen Type Urincc Urine Color [place] H (YELLOW) Urine Appearance Clear (CLEAR) Urine pH 7.0 (5.0-9.0) Ur Specific [place] 1.010 (1.005-1.030) Urine Protein 30 H (NEGATIVE) mg/dL Urine Glucose (UA) 100 H (NEGATIVE) mg/dL Urine Ketones Negative (NEGATIVE) mg/dL Urine Occult Blood Negative (NEGATIVE) Urine Nitrite Positive H (NEGATIVE) Urine Bilirubin Negative (NEGATIVE) Urine Urobilinogen 1.0 (0.2-1.0) E.U./dL Ur Leukocyte Esterase Negative (NEGATIVE) Urine RBC 0-5 (0-5) /HPF Urine WBC 0-5 (0-5) /HPF Ur Epithelial Cells Moderate H /LPF Urine Bacteria Rare (NONE TO FEW) /HPF Meds: Medications Discontinued Medications Generic Name Dose Route Start Last Admin Trade Name Freq PRN Reason Stop Dose Admin Ceftriaxone Sodium 1 gm 10/17/18 09:27 Rocephin IM 10/17/18 09:28 ONETIME ONE Cephalexin 2,000 mg 10/17/18 09:34 Keflex PO 10/17/18 09:35 ONETIME ONE - Re-Assessments/Exams Free Text/Narrative Re-Assessment/Exam: 10/17/18 09:36 Patient afebrile, nontoxic appearing, vital signs stable. Patient given 1 g IM Rocephin in ER. Patient given prescription for Keflex 500 mg. Patient will follow up with [facility] in 3-5 days for recheck. Departure - Departure Time of Disposition: 09:37 Disposition: Home, Self-Care 01 Condition: Good Clinical Impression: UTI, Urinary tract infectious disease - Discharge Information Prescriptions: Cephalexin [Keflex] 500 mg PO TID #15 capsule Instructions: Antibiotic Medicine, Adult, Urine Culture and Sensitivity Testing , Urinary Tract Infection, Adult, [id number] Referrals: Yoanna Jang, FOOD PREPARATION KITCHEN AIDE [Primary Care Provider] - Forms: ED Department Discharge Additional Instructions: Follow-up at [facility] in 3-5 days for [facility]heck[facility] continue or worsen. Take medication as prescribed. Drink plenty of fluids - My Orders Last 24 Hours: My Active Orders 10/17/18 09:25 CULTURE URINE [RM] Stat - Assessment/Plan Last 24 Hours: My Active Orders 10/17/18 09:25 CULTURE URINE [RM] Stat
[2018-10-17] MEDS ORDERED: Cephalexin 250 MG Cap PO ONE (09:34)
[2018-10-17] MEDS ORDERED: Lidocaine 1% 20 ML MDV ONE (09:39)
== END 2018-10-17 10:00 | disposition home or self-care (01) ==
LOC: KA.ED 08:23
DX: N39.0 Urinary tract infection, site not specified (principal); I10 Essential (primary) hypertension; K21.9 Gastro-esophageal reflux disease without esophagitis; F41.9 Anxiety disorder, unspecified; Z79.899 Other long term (current) drug therapy; Z88.2 Allergy status to sulfonamides; Z88.8 Allergy status to other drugs, medicaments and biological substances
CPT/HCPCS: 81001; 87086; 96372; 99283; 99284; J0696; J2001

== ENCOUNTER 2018-10-31 18:10 | Emergency (ER) | payer MEDICARE, OTHER ==
[2018-10-31] MEDS ORDERED: Sodium Chloride 0.9% 1,000 ML IV ONE (18:49)
[2018-10-31] MEDS ORDERED: cloNIDine 0.1 MG Tab PO ONE (20:01)
--- NOTE | 2018-10-31 20:11 | EDM.PDOC ---
ED HPI GENERAL MEDICAL PROBLEM - General Chief Complaint: General Stated Complaint: ?UTI Time Seen by Provider: 10/31/18 18:32 Source of Information: Reports: Patient History Limitations: Reports: Other (memory/recall) - History of Present Illness INITIAL COMMENTS - FREE TEXT/NARRATIVE: Patient presents with complaint of pain and burning in the perineum with urination that started this afternoon. She also has a headache. BP is quite elevated too and patient is taking her meds she says. She has had UTI's with one as recent as two weeks ago treated with Cephalexin for 5 days. Patient says it was fine after treatment. Perineal Area Pain Score (Numeric/FACES): 6 - Related Data Allergies Allergy/AdvReac Type Severity Reaction Status Date / Time amlodipine Allergy Edema Verified 10/31/18 18:21 metoprolol Allergy Edema Verified 10/31/18 18:21 nitrofurantoin Allergy Nausea and Verified 10/31/18 18:21 macrocrystalline Vomiting [From Macrodantin] Sulfa (Sulfonamide Allergy Hives Verified 10/31/18 18:21 Antibiotics) tolmetin sodium Allergy Edema Verified 10/31/18 18:21 [From Tolectin] Home Meds: Home Meds Losartan [Cozaar] 100 mg PO DAILY 09/02/15 [History] Omeprazole 20 mg PO BIDAC 09/02/15 [History] cloNIDine [Catapres] 0.2 mg PO BID 06/07/18 [History] Atenolol [Tenormin] 25 mg PO DAILY 10/14/18 [History] Multivitamin [Multi-Vitamin Daily] 1 each PO DAILY 10/14/18 [History] Propylene Glycol/PEG 400/Pf [Systane Ultra 0.4-0.3% Eye Drp] 1 each OP Q4HR PRN 10/14/18 [History] Acetaminophen/Caffeine [Excedrin Tension Headache Cplt] 1 each PO DAILY PRN [History] Past Medical History HEENT History: Reports: Cataract, Glaucoma, Impaired Vision, Macular Degeneration Cardiovascular History: Reports: Hypertension Gastrointestinal History: Reports: GERD, Hemorrhoids Genitourinary History: Reports: UTI, Recurrent 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 and basal cell removal right hand - Infectious Disease History Infectious Disease History: Reports: Chicken Pox, Measles, Mumps, Pertussis ( Whooping Cough), Rubella - Past Surgical History Head Surgeries/Procedures: Reports: None HEENT Surgical History: Reports: Cataract Surgery, Eye Surgery Cardiovascular Surgical History: Reports: None GI Surgical History: Reports: Appendectomy, Colonoscopy, EGD Female Surgical History: Reports: Tubal Ligation Neurological Surgical History: Reports: None Musculoskeletal Surgical History: Reports: None Oncologic Surgical History: Reports: None Dermatological Surgical History: Reports: Skin Biopsy Social & Family History - Family History Family Medical History: Noncontributory HEENT: Reports: None Cardiac: Reports: None Respiratory: Reports: None GI: Reports: None : Reports: UTI, Recurrent OBGYN: Reports: None Musculoskeletal: Reports: None Neurological: Reports: None Psychiatric: Reports: None Endocrine/Metabolic: Reports: None Hematologic: Reports: None Immunologic: Reports: None Dermatologic: Reports: None Oncologic: Reports: None - Tobacco Use Smoking Status *Q: Never Smoker - Caffeine Use Caffeine Use: Reports: Coffee Other Caffeine Use: COFFEE WITH Satomi - Recreational Drug Use Recreational Drug Use: No ED ROS GENERAL - Review of Systems Review Of Systems: See Below Constitutional: Denies: Fever, Chills HEENT: Reports: No Symptoms Respiratory: Denies: Shortness of Breath, Cough Cardiovascular: Denies: Chest Pain, Lightheadedness, Syncope Endocrine: Reports: No Symptoms GI/Abdominal: Reports: Abdominal Pain (full bladder feeling). Denies: Constipation, Diarrhea, Nausea, Vomiting : Reports: Dysuria, Frequency. Denies: Discharge, Flank Pain Musculoskeletal: Reports: No Symptoms Skin: Denies: Cyanosis, Jaundice, Mottled, Pallor, Diaphoresis Neurological: Denies: Confusion, Seizure, Syncope, Trouble Speaking, Difficulty Walking Psychiatric: Denies: Agitation, Anxiety, Confusion ED EXAM, GENERAL - Physical Exam Exam: See Below Exam Limited By: No Limitations General Appearance: Alert, WD/WN, No Apparent Distress Eye Exam: Bilateral Eye: EOMI, Normal Inspection, PERRL Ears: Normal External Exam, Hearing Grossly Normal Nose: Normal Inspection, No Blood Throat/Mouth: Normal Inspection, Normal Lips, Normal Voice, No Airway Compromise Head: Atraumatic, Normocephalic Neck: Normal Inspection, Full Range of Motion Respiratory/Chest: No Respiratory Distress, Lungs Clear, Normal Breath Sounds Cardiovascular: Regular Rate, Rhythm, No Murmur GI/Abdominal: Normal Bowel Sounds, Soft, No Organomegaly, No Distention, Tender (suprapubic "feels like needs to urinate"). No: Distended, Guarding, Rigid Back Exam: Normal Inspection, Full Range of Motion. No: CVA Tenderness (L), CVA Tenderness (R) Extremities: Normal Inspection, Normal Range of Motion, Non-Tender, No Pedal Edema Neurological: Alert, Oriented, Normal Cognition, No Motor/Sensory Deficits, Memory Loss Recent Events (doesn't remember clearly what medicines she has taken ) Psychiatric: Normal Affect, Normal Mood Skin Exam: Warm, Dry, Intact, Normal Color, No Rash Course - Vital Signs Last Recorded V/S: Last Vital Signs Temp 98.5 F 10/31/18 18:18 Pulse 82 10/31/18 20:55 Resp 16 10/31/18 20:55 BP 172/82 H 10/31/18 20:55 Pulse Ox 97 10/31/18 20:55 - Orders/Labs/Meds Labs: Laboratory Tests 10/31/18 10/31/18 10/31/18 Range/Units 19:03 19:10 19:10 WBC 7.02 (5.00-10.00) 10^3/uL RBC 4.12 (3.80-5.50) 10^6/uL Hgb 14.0 (12.0-16.0) g/dL Hct 39.2 (37.0-47.0) % MCV 95.1 H (82.0-92.0) fL MCH 34.0 H (27.0-31.0) pg MCHC 35.7 (32.0-36.0) g/dL RDW 12.7 (11.5-14.5) % Plt Count 170 (150-400) 10^3/uL MPV 9.0 (7.4-10.4) fL Immature Gran % (Auto) 0.3 (0.0-5.0) % Neut % (Auto) 85.5 H (50.0-70.0) % Lymph % (Auto) 9.1 L (20.0-40.0) % Nye % (Auto) 5.1 (2.0-8.0) % Eos % (Auto) 0.0 L (1.0-3.0) % Baso % (Auto) 0.0 (0.0-1.0) % Immature Gran # (Auto) 0.02 (0.00-0.50) 10^3/uL Neut # (Auto) 6.00 (2.50-7.00) 10^3/uL Lymph # (Auto) 0.64 L (1.00-4.00) 10^3/uL Nye # (Auto) 0.36 (0.10-0.80) 10^3/uL Eos # (Auto) 0.00 L (0.10-0.30) 10^3/uL Baso # (Auto) 0.00 (0.00-0.10) 10^3/uL Sodium 134 L (136-145) mmol/L Potassium 4.0 (3.3-5.3) mmol/L Chloride 95 L (98-115) mmol/L Carbon Dioxide 23.0 (21.0-32.0) mmol/L Anion Gap 20.0 H (5-15) mmol/L BUN 21 (6-25) mg/dL Creatinine 1.21 H (0.51-1.17) mg/dL Est Cr Clr Drug Dosing 25.75 mL/min Estimated GFR (MDRD) 43 mL/min Glucose 136 H (75 - 99) mg/dL Calcium 9.9 (8.7-10.3) mg/dL Specimen Type [place]rin[place] Urine Color Yellow (YELLOW) Urine Appearance Clear (CLEAR) Urine pH 7.0 (5.0-9.0) Ur Specific [place] 1.025 (1.005-1.030) Urine Protein 100 H (NEGATIVE) mg/dL Urine Glucose (UA) Negative (NEGATIVE) mg/dL Urine Ketones 15 H (NEGATIVE) mg/dL Urine Occult Blood Trace-intact H (NEGATIVE) Urine Nitrite Negative (NEGATIVE) Urine Bilirubin Negative (NEGATIVE) Urine Urobilinogen 0.2 (0.2-1.0) E.U./dL Ur Leukocyte Esterase Negative (NEGATIVE) Urine RBC 0-5 (0-5) /HPF Urine WBC 0-5 (0-5) /HPF Urine Bacteria Rare (NONE TO FEW) /HPF Meds: Medications Discontinued Medications Generic Name Dose Route Start Last Admin Trade Name Tomas PRN Reason Stop Dose Admin Clonidine HCl 0.2 mg 10/31/18 20:01 10/31/18 20:12 Catapres PO 10/31/18 20:02 0.2 mg ONETIME ONE Administration Sodium Chloride 1,000 mls @ 999 mls/hr 10/31/18 18:49 10/31/18 19:12 Normal Saline IV 10/31/18 19:49 999 mls/hr .BOLUS ONE Administration - Re-Assessments/Exams Free Text/Narrative Re-Assessment/Exam: 10/31/18 20:02 UA shows no evidence of UTI. Reviewing records shows patient is supposed to be taking Atenolol, Losartan as well as Clonidine 0.2 mg bid. Patient was thinking she only takes one blood pressure pill. This may explain the elevated BP. We are trying to find out through daughter more details about this. Also I think this is a yeast infection so was discussing treating with Diflucan when the nurse found a Rx for Diflucan was sent to the pharmacy from [facility] yesterday. Patient doesn't know if she took this either. 10/31/18 20:15 Ketonuria likely from dehydration; are giving IV fluids now. It sounds like she has most likely missed at least her clonidine so will give 0.2 mg now. 10/31/18 20:23 The nurse called patient's daughters/inlaw to try to get details of her medication compliance. One daughter, a nurse, will meet with patient tomorrow to help her get it straightened out. 10/31/18 21:03 Fluids are in, BP is improved and patient is feeling better. The headache is still 5/10 and with her kidney function I don't want to give Toradol but patient can take Excedrin, which she usually takes, at home. Discussed findings and treatment plan with patient including that she needs to review her current medications and follow up with her doctor for recheck of blood pressure. Patient discharged to home in stable condition. Departure - Departure Time of Disposition: 21:01 Disposition: Home, Self-Care 01 Condition: Good Clinical Impression: Hypertension, uncontrolled, Noncompliance w/medication treatment due to intermit use of medication Headache Qualifiers: Headache type: unspecified Headache chronicity pattern: acute headache Intractability: not intractable Qualified Code(s): R51 - Headache - Discharge Information Referrals: [facility]ang [facility] [Primary Care Provider] - Forms: ED Department Discharge Additional Instructions: 1. Make sure to take your medications as directed. 2. Follow up with your PCP in 2-3 days for recheck of blood pressure and yeast infection. 3. Drink 8 cups of water daily.
[2018-10-31 20:56] VITALS: BP 172/82; PULSE 82
== END 2018-10-31 21:10 | disposition home or self-care (01) ==
LOC: KA.ED 18:10
DX: I10 Essential (primary) hypertension (principal); R51 Headache; K21.9 Gastro-esophageal reflux disease without esophagitis; M19.90 Unspecified osteoarthritis, unspecified site; Z91.14 Patient's other noncompliance with medication regimen; Z98.49 Cataract extraction status, unspecified eye; Z90.49 Acquired absence of other specified parts of digestive tract; Z98.51 Tubal ligation status; Z88.1 Allergy status to other antibiotic agents; Z88.2 Allergy status to sulfonamides; Z88.8 Allergy status to other drugs, medicaments and biological substances
CPT/HCPCS: 36415; 51701; 80048; 81001; 85025; 96360; 99283; 99284; A9270; J7030

== ENCOUNTER 2018-11-24 08:50 | Day surgery (SDC) | payer MEDICARE, OTHER ==
[2018-11-24] MEDS ORDERED: Gatifloxacin 0.5% Ophth Soln 2.5 ML Bot EYERT SCH (09:00)
[2018-11-24] MEDS ORDERED: Sodium Chloride 0.9% 10 ML Syringe FLUSH PRN (09:00)
[2018-11-24] MEDS ORDERED: Lactated Ringers 1,000 ML IV SCH (09:00)
[2018-11-24 09:13] VITALS: PULSE 57
[2018-11-24] MEDS: Phenylephrine 10% Ophth Soln 5 ML Bot EYERT SCH ×3 (09:24→09:47)
[2018-11-24] MEDS: Cyclopentolate 1% Opth Soln 2 ML Bottle EYERT SCH ×3 (09:29→09:52)
[2018-11-24] MEDS ORDERED: Balanced Salt Solution Plus Ophth Irrig 500 ML Bottle IOCULAR ONE (11:08)
[2018-11-24] MEDS ORDERED: Carbachol 0.01% Intraocular 1.5 ML Vial EYERT ONE (11:08)
[2018-11-24] MEDS ORDERED: Dexamethasone/Neomycin/Polymyxin B Ophth Oint 3.5 GM Tube EYERT ONE (11:08)
[2018-11-24] MEDS ORDERED: Balanced Salt Solution Ophth Irrig 15 ML Bottle EYERT ONE (11:08)
[2018-11-24] MEDS ORDERED: Water For Irrigation,Sterile 1,500 ML Container IRR ONE (11:08)
[2018-11-24] MEDS ORDERED: Lidocaine 2% with EPINEPHrine 1:100,000 20 ML MDV INJECT ONE (11:09)
[2018-11-24] MEDS ORDERED: Lidocaine 1% 10 ML MDV INJECT ONE (11:09)
[2018-11-24] MEDS ORDERED: Hyaluronate Sodium 1% 0.85 ML Syringe IOCULAR ONE (11:10)
[2018-11-24] MEDS ORDERED: EPINEPHrine 1 MG/1 ML Amp ONE (11:10)
[2018-11-24] MEDS ORDERED: Tetracaine HCl/PF 0.5% 4 ML Bottle EYEBOTH ONE (11:10)
[2018-11-24 11:43] VITALS: BP 155/95
--- NOTE | 2018-11-24 16:18 | OR ---
DATE OF SURGERY: 11/24/2018 SURGEON: Oc Villatoro MD PREOPERATIVE DIAGNOSIS: Cataract, right eye. POSTOPERATIVE DIAGNOSIS: Cataract, right eye. OPERATION PERFORMED: Phacoemulsification with posterior chamber lens insertion, right eye. HISTORY: The patient presents at this time with an increasing amount of difficulty seeing to be able to read using the right eye. This eye has a vision of 20/70, -2. The right lens has a 3+ nuclear sclerosis with 2+ cortical change and a 2+ posterior subcapsular change. 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 FINDINGS: The patient was taken to the operating room where appropriate anesthesia, sedation and monitoring were provided. A retrobulbar block was given on the right side. The eye was massaged and was found to be appropriately soft. The eye and eyelids were then prepped and draped in the usual sterile manner. A lid speculum was placed. A micro sharp blade was used to enter the anterior chamber inside the limbus superior-temporally. Xylocaine was irrigated into the eye at this site. Healon was irrigated into the eye through this site. Then using a 2.85 mm corneal blade an entry was made into the anterior chamber just inside the limbus temporally. Healon was again irrigated into the eye. Then using a cystitome, the anterior capsulorrhexis was created. The lens nucleus was hydrodissected using a 27 gauge cannula and balanced salt solution. The phacoemulsification unit was introduced through the temporal site and the Josh spatula through the superior temporal site. In so doing, the lens nucleus was phacoemulsified. The cortical fragments of the lens were removed using the irrigation aspiration unit. The posterior capsule was polished. Healon was irrigated into the eye. The posterior chamber lens was inserted and rotated into position inside the capsular bag. The Healon was irrigated out of the eye. Miostat was irrigated into the eye and the pupil rounded nicely. Two interrupted 10-0 nylon suture was placed through the temporal corneal incision site. Balanced salt solution was irrigated into the eye. The wound was tested and found to be tight. Maxitrol ointment was placed into the patient's right eye. The eyelids were closed and an eye patch and austin shield were placed. The patient left the operating room in good condition. /[id number]/MODL
== END 2018-11-24 12:00 | disposition home or self-care (01) ==
LOC: KA.SDS 08:50
PROVIDERS: ATTEND Ophthalmology
DX: H25.811 Combined forms of age-related cataract, right eye (principal); I10 Essential (primary) hypertension; E78.00 Pure hypercholesterolemia, unspecified; K21.9 Gastro-esophageal reflux disease without esophagitis; Z88.2 Allergy status to sulfonamides; Z88.8 Allergy status to other drugs, medicaments and biological substances; Z88.1 Allergy status to other antibiotic agents; Z79.899 Other long term (current) drug therapy
CPT/HCPCS: 00142; 66984; A9270; J0171; J2001; J7120; V2632

== ENCOUNTER 2018-12-22 08:09 | Day surgery (SDC) | payer MEDICARE, OTHER ==
[2018-12-22] MEDS ORDERED: Gatifloxacin 0.5% Ophth Soln 2.5 ML Bot EYELF SCH (08:15)
[2018-12-22] MEDS ORDERED: Sodium Chloride 0.9% 10 ML Syringe FLUSH PRN (08:15)
[2018-12-22] MEDS ORDERED: Lactated Ringers 1,000 ML IV SCH (08:15)
[2018-12-22] MEDS: Cyclopentolate 1% Opth Soln 2 ML Bottle EYELF SCH ×3 (08:28→08:54)
[2018-12-22] MEDS: Phenylephrine 10% Ophth Soln 5 ML Bot EYELF SCH ×3 (08:34→09:17)
[2018-12-22] MEDS ORDERED: Water For Irrigation,Sterile 1,500 ML Container IRR ONE (10:18)
[2018-12-22] MEDS ORDERED: Balanced Salt Solution Ophth Irrig 15 ML Bottle EYELF ONE (10:18)
[2018-12-22] MEDS ORDERED: Carbachol 0.01% Intraocular 1.5 ML Vial EYELF ONE (10:18)
[2018-12-22] MEDS ORDERED: EPINEPHrine 1 MG/1 ML Amp ONE (10:18)
[2018-12-22] MEDS ORDERED: Balanced Salt Solution Plus Ophth Irrig 500 ML Bottle IOCULAR ONE (10:18)
[2018-12-22] MEDS ORDERED: Lidocaine 1% 10 ML MDV INJECT ONE (10:19)
[2018-12-22] MEDS ORDERED: Lidocaine 2% with EPINEPHrine 1:100,000 20 ML MDV INJECT ONE (10:19)
[2018-12-22] MEDS ORDERED: Dexamethasone/Neomycin/Polymyxin B Ophth Oint 3.5 GM Tube EYELF ONE (10:19)
[2018-12-22] MEDS ORDERED: Tetracaine HCl/PF 0.5% 4 ML Bottle EYEBOTH ONE (10:20)
[2018-12-22] MEDS ORDERED: Hyaluronate Sodium 1% 0.85 ML Syringe IOCULAR ONE (10:20)
[2018-12-22 11:26] VITALS: BP 157/85
--- NOTE | 2018-12-22 14:53 | OR ---
DATE OF SURGERY: 12/22/2018 SURGEON: Oc Villatoro MD PREOPERATIVE DIAGNOSIS: Cataract, left eye. POSTOPERATIVE DIAGNOSIS: Cataract, left eye. OPERATION PERFORMED: Phacoemulsification with posterior chamber lens insertion, left eye. HISTORY: The patient presents at this time with increasing matter of difficulty seeing with her left eye as she attempts to read. The left eye has a vision of 20/70. Left lens has a 3+ nuclear sclerosis with 2+ cortical change and 2+ posterior subcapsular change. This eye has a combined cataract and a cataract of aging. FINDINGS: The patient was taken to the operating room where appropriate anesthesia, sedation and monitoring were provided. A retrobulbar block was given on the left side. The eye was massaged and was found to be appropriately soft. The eye and eyelids were then prepped and draped in the usual sterile manner. A lid speculum was placed. A micro sharp blade was used to enter the anterior chamber inside the limbus inferior-temporally. Xylocaine was irrigated into the eye at this site. Healon was irrigated into the eye through this site. Then using a 2.85 mm corneal blade an entry was made into the anterior chamber just inside the limbus temporally. Healon was again irrigated into the eye. Then using a cystitome, the anterior capsulorrhexis was created. The lens nucleus was hydrodissected using a 27 gauge cannula and balanced salt solution. The phacoemulsification unit was introduced through the temporal site and the Josh spatula through the inferior temporal site. In so doing, the lens nucleus was phacoemulsified. The cortical fragments of the lens were removed using the irrigation aspiration unit. The posterior capsule was polished. Healon was irrigated into the eye. The posterior chamber lens was inserted and rotated into position inside the capsular bag. The Healon was irrigated out of the eye. Miostat was irrigated into the eye and the pupil rounded nicely. A single interrupted 10-0 Nylon suture was placed through the temporal corneal incision site. Balanced salt solution was irrigated into the eye. The wound was tested and found to be tight. Maxitrol ointment was placed into the patient's left eye. The eyelids were closed and an eye patch and austin shield were placed. The patient left the operating room in good condition. /[id number]/MODL
== END 2018-12-22 11:13 | disposition home or self-care (01) ==
LOC: KA.SDS 08:09
PROVIDERS: ATTEND Ophthalmology
DX: H25.812 Combined forms of age-related cataract, left eye (principal); I10 Essential (primary) hypertension; N95.2 Postmenopausal atrophic vaginitis; K21.0 Gastro-esophageal reflux disease with esophagitis; E78.00 Pure hypercholesterolemia, unspecified; M81.0 Age-related osteoporosis without current pathological fracture; M19.90 Unspecified osteoarthritis, unspecified site; Z79.899 Other long term (current) drug therapy; Z88.8 Allergy status to other drugs, medicaments and biological substances; Z88.2 Allergy status to sulfonamides
CPT/HCPCS: A9270-GY; J0171; J2001; J7120; V2632

== ENCOUNTER 2019-02-04 21:01 | Emergency (ER) | payer MEDICARE, OTHER ==
--- NOTE | 2019-02-04 21:16 | EDM.PDOC ---
ED HPI GENERAL MEDICAL PROBLEM - General Chief Complaint: Lower Extremity Injury/Pain Stated Complaint: L hip injury Time Seen by Provider: 02/04/19 21:04 Source of Information: Reports: Patient, EMS, Family History Limitations: Reports: No Limitations - History of Present Illness INITIAL COMMENTS - FREE TEXT/NARRATIVE: 83 YO WF presents to ER by EMS after a fall at home. Pt complaining of severe left hip pain. Pt states she was walking up stairs and caught her toe on the top step falling forward on her left side. Pt denies any head or neck injury. Pt reports pain is localized to the left hip. Pt denies loss of consciousness, denies dizziness or headache. Pt denies chest pain, shortness of breath, or nausea/vomiting. Pt is alert and oriented x 4 with GCS=15. Pt denies focal neurological deficits. Onset: Today Duration: Hour(s): (1) Location: Reports: Lower Extremity, Left Quality: Reports: Ache Severity: Severe Improves with: Reports: Rest Worsens with: Reports: Movement Context: Reports: Activity Associated Symptoms: Reports: No Other Symptoms. Denies: Confusion, Chest Pain , Cough, Diaphoresis, Fever/Chills, Headaches, Nausea/Vomiting, Rash, Seizure, Shortness of Breath, Syncope, Weakness - Related Data Allergies Allergy/AdvReac Type Severity Reaction Status Date / Time amlodipine Allergy Edema Verified 02/04/19 21:12 metoprolol Allergy Edema Verified 02/04/19 21:12 nitrofurantoin Allergy Nausea and Verified 02/04/19 21:12 macrocrystalline Vomiting [From Macrodantin] Sulfa (Sulfonamide Allergy Hives Verified 02/04/19 21:12 Antibiotics) tolmetin sodium Allergy Edema Verified 02/04/19 21:12 [From Tolectin] Home Meds: Home Meds Losartan [Cozaar] 100 mg PO DAILY 09/02/15 [History] Omeprazole 20 mg PO ACBREAKFAST 09/02/15 [History] cloNIDine [Catapres] 0.2 mg PO BID 06/07/18 [History] Atenolol [Tenormin] 25 mg PO DAILY 10/14/18 [History] Multivitamin [Multi-Vitamin Daily] 1 each PO DAILY 10/14/18 [History] Propylene Glycol/PEG 400/Pf [Systane Ultra 0.4-0.3% Eye Drp] 1 each EYERT Q4HR PRN 10/14/18 [History] Estradiol [Estring] 1 each VAG ASDIRECTED 11/20/18 [History] Past Medical History HEENT History: Reports: Cataract, Glaucoma, Impaired Vision, Macular Degeneration Cardiovascular History: Reports: High Cholesterol, Hypertension Gastrointestinal History: Reports: Diverticulosis, GERD, Hemorrhoids, Other ( See Below) Other Gastrointestinal History: dysphagia. diaphramatic hernia Genitourinary History: Reports: Renal Disease, UTI, Recurrent, Other (See Below) Other Genitourinary History: atrophic vaginitis. 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 and basal cell removal right hand. actinic keratosis. malignant neoplasm of skin. seborrheic dermatitis - Infectious Disease History Infectious Disease History: Reports: Chicken Pox, Measles, Mumps - Past Surgical History Head Surgeries/Procedures: Reports: None HEENT Surgical History: Reports: Cataract Surgery, Eye Surgery Cardiovascular Surgical History: Reports: None GI Surgical History: Reports: Appendectomy, Colonoscopy, EGD Female Surgical History: Reports: Breast Biopsy, Tubal Ligation Neurological Surgical History: Reports: None Musculoskeletal Surgical History: Reports: Other (See Below) Other Musculoskeletal Surgeries/Procedures:: right arm fracture surgery Oncologic Surgical History: Reports: None Dermatological Surgical History: Reports: Skin Biopsy Social & Family History - Family History Family Medical History: Noncontributory HEENT: Reports: None Cardiac: Reports: None Respiratory: Reports: None GI: Reports: None : Reports: UTI, Recurrent OBGYN: Reports: None Musculoskeletal: Reports: None Neurological: Reports: None Psychiatric: Reports: None Endocrine/Metabolic: Reports: None Hematologic: Reports: None Immunologic: Reports: None Dermatologic: Reports: None Oncologic: Reports: None - Caffeine Use Caffeine Use: Reports: Coffee Other Caffeine Use: COFFEE WITH COMPANY Review of Systems - Review of Systems Review Of Systems: See Below Constitutional: Reports: No Symptoms Eyes: Reports: No Symptoms Ears: Reports: No Symptoms Nose: Reports: No Symptoms Mouth/Throat: Reports: No Symptoms Respiratory: Reports: No Symptoms Cardiovascular: Reports: No Symptoms GI/Abdominal: Reports: No Symptoms Genitourinary: Reports: No Symptoms Musculoskeletal: Reports: Leg Pain Skin: Reports: No Symptoms Neurological: Reports: No Symptoms Psychiatric: Reports: No Symptoms ED EXAM, GENERAL - Physical Exam Exam: See Below Exam Limited By: No Limitations General Appearance: Alert, WD/WN, No Apparent Distress Eye Exam: Bilateral Eye: EOMI, PERRL Head: Atraumatic, Normocephalic Neck: Normal Inspection, Supple, Non-Tender, Full Range of Motion Respiratory/Chest: No Respiratory Distress, Lungs Clear, Normal Breath Sounds, No Accessory Muscle Use, Chest Non-Tender Cardiovascular: Normal Peripheral Pulses, Regular Rate, Rhythm, No Edema, No Gallop, No JVD, No Murmur, No Rub GI/Abdominal: Normal Bowel Sounds, Soft, Non-Tender, No Organomegaly, No Distention, No Abnormal Bruit, No Mass Back Exam: Normal Inspection, Full Range of Motion, NT Extremities: No Pedal Edema, Normal Capillary Refill, Leg Pain (left hip pain with external rotation) Neurological: Alert, Oriented, CN II-XII Intact, Normal Cognition, Normal Gait, Normal Reflexes, No Motor/Sensory Deficits Psychiatric: Normal Affect, Normal Mood Skin Exam: Warm, Dry, Intact, Normal Color, No Rash Course - Radiology Interpretation Free Text/Narrative:: left hip - intertrochanteric hip fx pelvis- NAD Departure - Departure Time of Disposition: 21:30 Disposition: DC/Tfer to Acute Hospital 02 Condition: Fair Clinical Impression: Intertrochanteric fracture of femur Qualifiers: Encounter type: initial encounter Fracture type: closed Fracture alignment: displaced Laterality: left Qualified Code(s): S72.142A - Displaced intertrochanteric fracture of left femur, initial encounter for closed fracture - Discharge Information Referrals: Yoanna Jang, MARKETING DIRECTOR [Primary Care Provider] - Forms: ED Department Discharge, Interfacility Transfer EMTALA - Assessment/Plan Assessment:: 1. left intertrochanteric hip fracture Plan: 1. transfer to [facility] for Ortho evaluation 2. morphine/zofran for pain control 3. supportive care
[2019-02-04 21:36] VITALS: BP 173/104; PULSE 84
[2019-02-04] MEDS ORDERED: Morphine 2 MG/ML Syringe IVPUSH ONE (21:52)
[2019-02-04] MEDS ORDERED: Morphine 2 MG/ML Syringe ONE (21:53)
--- NOTE | 2019-02-05 07:34 | CR ---
[id number] RAD/RAD Pelvis 1V W Jermain Hip 2V Exam: RAD Pelvis 1V W Jermain Hip 2V Clinical Data: TRAUMA COMPARISON: NO PREVIOUS SIMILAR EXAM IS AVAILABLE FINDINGS: An intratrochanteric fracture of the left hip is seen with involvement of the greater lesser trochanters IMPRESSION: LEFT HIP FRACTURE DESCRIBED Davi Pitts MD 02/05/19 0733 Thank you for allowing us to participate in the care of your patient.
== END 2019-02-04 22:15 ==
LOC: KA.ED 21:01
DX: S72.142A Displaced intertrochanteric fracture of left femur, initial encounter for closed fracture (principal); I10 Essential (primary) hypertension; K21.9 Gastro-esophageal reflux disease without esophagitis; Z79.899 Other long term (current) drug therapy; Z88.1 Allergy status to other antibiotic agents; Z88.2 Allergy status to sulfonamides; Z88.6 Allergy status to analgesic agent; Z88.8 Allergy status to other drugs, medicaments and biological substances; W10.9XXA Fall (on) (from) unspecified stairs and steps, initial encounter; Y93.01 Activity, walking, marching and hiking; Y92.009 Unspecified place in unspecified non-institutional (private) residence as the place of occurrence of the external cause
CPT/HCPCS: 51702; 96374; 99284-25; J2270

== ENCOUNTER 2023-08-16 14:42 | Emergency (ER) | payer MEDICARE, OTHER ==
[2023-08-16 14:54] VITALS: BP 115/89; PULSE 71
== END 2023-08-16 17:20 | disposition home or self-care (01) ==
LOC: KA.ED 14:42
DX: S42.451A Displaced fracture of lateral condyle of right humerus, initial encounter for closed fracture (principal); E78.00 Pure hypercholesterolemia, unspecified; I10 Essential (primary) hypertension; K21.9 Gastro-esophageal reflux disease without esophagitis; Z88.1 Allergy status to other antibiotic agents; Z88.2 Allergy status to sulfonamides; Z88.8 Allergy status to other drugs, medicaments and biological substances; Z86.19 Personal history of other infectious and parasitic diseases; W01.0XXA Fall on same level from slipping, tripping and stumbling without subsequent striking against object, initial encounter
CPT/HCPCS: 73080-RT; 99284

== ENCOUNTER 2024-07-29 19:06 | Inpatient (IN) | payer MEDICARE, OTHER ==
[2024-07-29 19:30] LABS: HEMATOCRIT 32.6 % (37.0-47.0); HEMOGLOBIN 11.3 g/dL (12.0-16.0); IMMATURE GRAN ABSOLUTE AUTO 0.02 10^3/uL (0.00-0.04); IMMATURE GRAN PERCENT AUTO 0.7 % (0.0-0.4); LYMPHOCYTES ABSOLUTE AUTO 0.92 10^3/uL (1.00-4.00); LYMPHOCYTES PERCENT AUTO 30.1 % (20.0-40.0); MEAN CORPUSCULAR HEMOGLOBIN 33.6 pg (27.0-31.0); MEAN CORPUSCULAR HGB CONC 34.7 g/dL (32.0-36.0); MEAN PLATELET VOLUME 9.8 fL (7.4-10.4); MONOCYTES ABSOLUTE AUTO 0.24 10^3/uL (0.10-0.80); MONOCYTES PERCENT AUTO 7.8 % (2.0-8.0); NEUTROPHILS ABSOLUTE AUTO 1.88 10^3/uL (2.50-7.00); NEUTROPHILS PERCENT AUTO 61.4 % (50.0-70.0); PLATELET COUNT,PLT 111 10^3/uL (150-400); RED BLOOD CELL COUNT 3.36 10^6/uL (3.80-5.50); RED CELL DISTRIBUTION WIDTH 12.7 % (11.5-14.5); WHITE BLOOD CELL COUNT,WBC 3.06 10^3/uL (5.00-10.00)
[2024-07-29 19:51] LABS: ALANINE AMINOTRANSFERASE,ALT 32 U/L (14-63); ALBUMIN 4.03 g/dL (3.40-5.00); ALKALINE PHOSPHATASE 61 U/L (46-116); ANION GAP 18.7 mmol/L (5-15); ASPARTATE AMNIOTRANSFERASE,AST 44 U/L (15-37); BILIRUBIN TOTAL 0.8 mg/dL (0.2-1.0); BLOOD UREA NITROGEN,BUN 25 mg/dL (7-18); CALCIUM 9.7 mg/dL (8.7-10.3); CARBON DIOXIDE,CO2 23.4 mmol/L (21.0-32.0); CHLORIDE,CL 96 mmol/L (98-107); CREATININE 0.92 mg/dL (0.51-1.17); ESTIMATED GFR 60 mL/min (>=60); GLUCOSE RANDOM 110 mg/dL (70-140); POTASSIUM,K 4.1 mmol/L (3.5-5.1); PROTEIN TOTAL,TP 6.9 g/dL (6.4-8.2); SODIUM,NA 134 mmol/L (136-145)
[2024-07-29] MEDS ORDERED: Naloxone 0.4 MG/ML SDV IVPUSH PRN (20:22)
[2024-07-29] MEDS: Sodium Chloride 0.9% 10 ML Syringe FLUSH PRN (20:31)
[2024-07-29 20:33] LABS: APPEARANCE,URINE CLOUDY (CLEAR); BILIRUBIN,URINE NEGATIVE (NEGATIVE); COLOR,URINE YELLOW (YELLOW); GLUCOSE,URINE NEGATIVE (NEGATIVE); KETONES,URINE TRACE mg/dL (NEGATIVE); LEUKOCYTE ESTERASE,URINE TRACE (NEGATIVE); NITRITE,URINE NEGATIVE (NEGATIVE); OCCULT BLOOD,URINE NEGATIVE (NEGATIVE); PROTEIN,URINE 100 mg/dL (NEGATIVE)
[2024-07-29] MEDS: HYDROmorphone 1 MG/ML Syringe IVPUSH ONE (20:36)
[2024-07-29 20:39] LABS: BACTERIA,URINE MODERATE /HPF (NONE TO FEW); EPITHELIAL CELLS,URINE FEW /LPF; MUCUS,URINE RARE /LPF (NEGATIVE); RBC,URINE NOT SEEN /HPF (0-5)
[2024-07-29] MEDS: Ondansetron 4 MG/2 ML SDV IVPUSH ONE (21:40)
[2024-07-30] MEDS ORDERED: Ondansetron 4 MG/2 ML SDV IV PRN (01:24)
[2024-07-30 07:47] LABS: BASOPHILS ABSOLUTE AUTO 0.01 10^3/uL (0.00-0.10); BASOPHILS PERCENT AUTO 0.2 % (0.0-1.0); HEMATOCRIT 30.4 % (37.0-47.0); HEMOGLOBIN 10.2 g/dL (12.0-16.0); IMMATURE GRAN ABSOLUTE AUTO 0.03 10^3/uL (0.00-0.04); IMMATURE GRAN PERCENT AUTO 0.6 % (0.0-0.4); LYMPHOCYTES ABSOLUTE AUTO 0.83 10^3/uL (1.00-4.00); LYMPHOCYTES PERCENT AUTO 17.7 % (20.0-40.0); MEAN CORPUSCULAR HEMOGLOBIN 32.8 pg (27.0-31.0); MEAN CORPUSCULAR HGB CONC 33.6 g/dL (32.0-36.0); MEAN CORPUSCULAR VOLUME 97.7 fL (82.0-92.0); MONOCYTES ABSOLUTE AUTO 0.42 10^3/uL (0.10-0.80); MONOCYTES PERCENT AUTO 8.9 % (2.0-8.0); NEUTROPHILS ABSOLUTE AUTO 3.41 10^3/uL (2.50-7.00); NEUTROPHILS PERCENT AUTO 72.6 % (50.0-70.0); PLATELET COUNT,PLT 114 10^3/uL (150-400); RED BLOOD CELL COUNT 3.11 10^6/uL (3.80-5.50); RED CELL DISTRIBUTION WIDTH 12.8 % (11.5-14.5)
[2024-07-30 07:59] LABS: ANION GAP 18.6 mmol/L (5-15); CALCIUM 9.5 mg/dL (8.7-10.3); CARBON DIOXIDE,CO2 24.7 mmol/L (21.0-32.0); CREATININE 1.17 mg/dL (0.51-1.17); EST CRCL DRUG DOSING (CG) 16.63 mL/min; POTASSIUM,K 4.3 mmol/L (3.5-5.1)
[2024-07-30] MEDS: oxyCODONE 5 MG Tab PO PRN (08:55)
[2024-07-30] MEDS ORDERED: Enoxaparin 40 MG/0.4 ML Syringe SUBCUT SCH (09:00)
[2024-07-30] MEDS: Sertraline 50 MG Tab PO SCH (09:12)
[2024-07-30] MEDS: hydrALAZINE 50 MG Tab PO SCH (09:13)
[2024-07-30] MEDS: Lisinopril 5 MG Tab PO SCH (09:13)
[2024-07-30] MEDS: Isosorbide Mononitrate 30 MG Tab.ER PO SCH (09:13)
[2024-07-30] MEDS: Enoxaparin 30 MG/0.3 ML Syringe SUBCUT SCH (09:15)
[2024-07-30] MEDS: Sodium Chloride 0.9% 500 ML IV ONE (11:40)
[2024-07-30] MEDS: Acetaminophen 325 MG Tab PO PRN (12:12)
[2024-07-30] MEDS: Omeprazole 20 MG Cap.CR PO SCH (12:12)
[2024-07-30] MEDS: Atenolol 25 MG Tab PO SCH (18:08)
[2024-07-30] MEDS: Formoterol/Mometasone 200-5 MCG 8.8 GM Inhaler INH SCH (19:32)
[2024-07-30] MEDS: Donepezil 10 MG Tab PO SCH (19:33)
[2024-07-31 07:22] LABS: HEMOGLOBIN 8.6 g/dL (12.0-16.0); IMMATURE GRAN ABSOLUTE AUTO 0.03 10^3/uL (0.00-0.04); IMMATURE GRAN PERCENT AUTO 0.4 % (0.0-0.4); LYMPHOCYTES ABSOLUTE AUTO 0.73 10^3/uL (1.00-4.00); LYMPHOCYTES PERCENT AUTO 10.4 % (20.0-40.0); MEAN CORPUSCULAR HEMOGLOBIN 33.2 pg (27.0-31.0); MEAN CORPUSCULAR HGB CONC 34.4 g/dL (32.0-36.0); MEAN CORPUSCULAR VOLUME 96.5 fL (82.0-92.0); MEAN PLATELET VOLUME 9.8 fL (7.4-10.4); MONOCYTES ABSOLUTE AUTO 0.62 10^3/uL (0.10-0.80); MONOCYTES PERCENT AUTO 8.8 % (2.0-8.0); NEUTROPHILS ABSOLUTE AUTO 5.63 10^3/uL (2.50-7.00); NEUTROPHILS PERCENT AUTO 80.4 % (50.0-70.0); PLATELET COUNT,PLT 108 10^3/uL (150-400); RED BLOOD CELL COUNT 2.59 10^6/uL (3.80-5.50); RED CELL DISTRIBUTION WIDTH 12.9 % (11.5-14.5); WHITE BLOOD CELL COUNT,WBC 7.01 10^3/uL (5.00-10.00)
[2024-07-31 07:32] LABS: ANION GAP 13.4 mmol/L (5-15); CALCIUM 9.2 mg/dL (8.7-10.3); CARBON DIOXIDE,CO2 26.6 mmol/L (21.0-32.0); CREATININE 1.37 mg/dL (0.51-1.17); EST CRCL DRUG DOSING (CG) 14.2 mL/min
[2024-07-31] MEDS: Sodium Chloride 0.9% 1,000 ML IV SCH (11:57)
[2024-07-31] MEDS: Morphine 2 MG/ML SYRINGE IVPUSH PRN (20:17)
[2024-08-01 11:33] VITALS: BP 134/83; PULSE 73
[2024-08-01] MEDS: Morphine 2 MG/ML SYRINGE IVPUSH PRN (13:20)
[2024-08-01] MEDS: Saliva Substitute Oral Spray 120 ML Bottle MUCMEM PRN (13:21)
[2024-08-01] MEDS: Atropine 1% Ophth Soln 5 ML Bottle SL PRN (15:37)
[2024-08-01 17:02] LABS: APPEARANCE,URINE TURBID (CLEAR); BILIRUBIN,URINE NEGATIVE (NEGATIVE); COLOR,URINE YELLOW (YELLOW); GLUCOSE,URINE NEGATIVE (NEGATIVE); KETONES,URINE NEGATIVE (NEGATIVE); NITRITE,URINE NEGATIVE (NEGATIVE); PH,URINE 5.5 (5.0-9.0); PROTEIN,URINE >=300 mg/dL (NEGATIVE); UROBILINOGEN,URINE 0.2 E.U./dL (0.2-1.0)
[2024-08-01 17:12] LABS: LEUKOCYTE ESTERASE,URINE MODERATE (NEGATIVE); OCCULT BLOOD,URINE TRACE-INTACT (NEGATIVE)
[2024-08-01 17:14] LABS: EPITHELIAL CELLS,URINE RARE /LPF; RBC,URINE 0-5 /HPF (0-5)
[2024-08-01 17:15] LABS: BACTERIA,URINE MODERATE /HPF (NONE TO FEW)
[2024-08-01] MEDS ORDERED: Phenazopyridine 95 MG Tab PO PRN (18:19)
[2024-08-01] MEDS: cefTRIAXone 1 GM in Sodium Chloride 0.9% 50 ML IV SCH (18:43)
[2024-08-01] MEDS: Acetaminophen Susp 160 MG/5 ML 120 ML Bottle PO PRN (21:19)
== END 2024-08-02 13:10 | disposition hospice, home (50) | DRG 563 ==
LOC: KA.ED 19:06 → KA.MS 22:35
PROVIDERS: ADMIT Internal Medicine; ATTEND Internal Medicine
DX: S42.252A Displaced fracture of greater tuberosity of left humerus, initial encounter for closed fracture (principal); S42.92XA Fracture of left shoulder girdle, part unspecified, initial encounter for closed fracture; N17.9 Acute kidney failure, unspecified; Z66 Do not resuscitate; Z88.0 Allergy status to penicillin; H40.9 Unspecified glaucoma; H54.7 Unspecified visual loss; E78.00 Pure hypercholesterolemia, unspecified; W06.XXXA Fall from bed, initial encounter; Y93.89 Activity, other specified; I10 Essential (primary) hypertension; I27.20 Pulmonary hypertension, unspecified; E86.1 Hypovolemia; K21.9 Gastro-esophageal reflux disease without esophagitis; M19.90 Unspecified osteoarthritis, unspecified site; W19.XXXA Unspecified fall, initial encounter; M81.0 Age-related osteoporosis without current pathological fracture; R51.9 Headache, unspecified; F41.9 Anxiety disorder, unspecified; Z85.828 Personal history of other malignant neoplasm of skin; Z98.49 Cataract extraction status, unspecified eye; Z98.890 Other specified postprocedural states; Z88.8 Allergy status to other drugs, medicaments and biological substances; Z90.49 Acquired absence of other specified parts of digestive tract; Z79.899 Other long term (current) drug therapy; Z88.2 Allergy status to sulfonamides; Z98.51 Tubal ligation status
CPT/HCPCS: 36415; 73030; 73200; 80053; 81001; 85025; 87086; 96374; 96375; 99285; J1171; J2405; 51702; 80048; 87088; A9270-GY; J0696; J1650; J2270; J7030; Q3014